=== PATIENT | male | born 1985 | race Caucasian/White ===

== ENCOUNTER 2023-06-26 03:22 | Emergency (ER) | payer SELFPAY ==
[~2023-06-26] VITALS: Ht 165.1 cm; Wt 59.5 kg
[2023-06-26 03:38] VITALS: O2SAT 100
[2023-06-26 04:04] LABS: BASOPHILS % 1.2 % (0.0-2.0); EOSINOPHILS % 2.9 % (0.0-5.0); HEMATOCRIT. 42.4 % (42.0-52.0); HEMOGLOBIN. 14.1 g/dL (14.0-18.0); LYMPHOCYTES % 38.8 % (20.0-50.0); MEAN CORPUSCULAR HEMOGLOBIN 29.8 pg (28.0-32.0); MEAN CORPUSCULAR HGB CONC 33.2 g/dL (31.0-37.0); MEAN CORPUSCULAR VOLUME 89.6 fL (80.0-94.0); MEAN PLATELET VOLUME 7.4 fl (7.4-10.4); MONOCYTES % 9.2 % (2.0-8.0); NEUTROPHILS % 47.9 % (40.0-76.0); PLATELET 341 x1000/uL (130-400); RED BLOOD CELL COUNT 4.73 mill/uL (4.7-6.1); RED CELL DISTRIBUTION WIDTH 13.5 % (11.6-14.6); WHITE BLOOD COUNT 7.8 x1000/uL (4.5-11.0)
[2023-06-26 04:11] LABS: CHLORIDE 108 mEq/L (98-107); INDEX HEMOLYSI 1 (1-3); INDEX ICTERIC 1 (1-4); INDEX LIPEMIC 1 (1-3); POTASSIUM 3.5 mEq/L (3.5-5.1); SODIUM 141 mEq/L (136-145)
[2023-06-26 04:21] LABS: ALANINE AMINOTRANSFERASE 22 IU/L (13-61); ALBUMIN 3.8 g/dL (3.4-5.0); ASPARTATE AMINOTRANSFERASE 14 IU/L (15-37); BILIRUBIN TOTAL 0.2 mg/dL (0.1-1.0); CALCIUM 8.5 mg/dL (8.5-10.1); CARBON DIOXIDE 30 mEq/L (21-32); GLUCOSE 79 mg/dL (70-105); PROTEIN TOTAL 7.5 g/dL (6.0-8.3); TROPONIN I HIGH SENSITIVITY 4 ng/L (<78); UREA NITROGEN BLOOD 14 mg/dL (7-21)
[2023-06-26] MEDS ORDERED: SODIUM CHLORIDE 0.9% 1,000 ML IV ONE (06:00)
[2023-06-26] MEDS ORDERED: ONDANSETRON HCL 4MG/2ML INJ IV STA (06:00)
[2023-06-26 06:32] LABS: EOSINOPHILS % 3.1 % (0.0-5.0); HEMATOCRIT. 40.5 % (42.0-52.0); HEMOGLOBIN. 13.6 g/dL (14.0-18.0); LYMPHOCYTES % 42.2 % (20.0-50.0); MEAN CORPUSCULAR HEMOGLOBIN 30.1 pg (28.0-32.0); MEAN CORPUSCULAR HGB CONC 33.6 g/dL (31.0-37.0); MEAN CORPUSCULAR VOLUME 89.3 fL (80.0-94.0); MEAN PLATELET VOLUME 7.4 fl (7.4-10.4); MONOCYTES % 8.2 % (2.0-8.0); NEUTROPHILS % 45.5 % (40.0-76.0); PLATELET 316 x1000/uL (130-400); RED BLOOD CELL COUNT 4.53 mill/uL (4.7-6.1); RED CELL DISTRIBUTION WIDTH 13.6 % (11.6-14.6); WHITE BLOOD COUNT 7.4 x1000/uL (4.5-11.0)
[2023-06-26 06:49] LABS: CHLORIDE 109 mEq/L (98-107); INDEX HEMOLYSI 1 (1-3); INDEX ICTERIC 1 (1-4); INDEX LIPEMIC 1 (1-3); POTASSIUM 3.8 mEq/L (3.5-5.1); SODIUM 141 mEq/L (136-145)
[2023-06-26 06:58] LABS: ALANINE AMINOTRANSFERASE 20 IU/L (13-61); ALBUMIN 3.4 g/dL (3.4-5.0); ASPARTATE AMINOTRANSFERASE 12 IU/L (15-37); BILIRUBIN TOTAL 0.2 mg/dL (0.1-1.0); CALCIUM 8.4 mg/dL (8.5-10.1); CARBON DIOXIDE 29 mEq/L (21-32); GLUCOSE 101 mg/dL (70-105); NT PRO B-TYPE NATRIURETIC PEP 13 pg/mL (5-125); PROTEIN TOTAL 6.9 g/dL (6.0-8.3); TROPONIN I HIGH SENSITIVITY 5 ng/L (<78); UREA NITROGEN BLOOD 13 mg/dL (7-21)
[2023-06-26] MEDS ORDERED: IOHEXOL-300 100 ML BOTTLE ONE (07:16)
[2023-06-26] MEDS ORDERED: IBUP-2029 MT (08:11)
[2023-06-26] MEDS ORDERED: ONDA4TAB11 PO (08:11)
[2023-06-26 09:28] LABS: CLARITY URINE CLEAR (CLEAR); COLOR URINE YELLOW (YELLOW)
[2023-06-26 09:30] LABS: GLUCOSE URINE NEGATIVE (NEGATIVE); KETONES URINE NEGATIVE (NEGATIVE); LEUKOCYTE ESTERASE URINE NEGATIVE (NEGATIVE); NITRITE URINE NEGATIVE (NEGATIVE); OCCULT BLOOD URINE NEGATIVE (NEGATIVE); PROTEIN URINE NEGATIVE (NEGATIVE); UROBILINOGEN URINE 0.2 E.U./dL (0.2-1.0)
[2023-06-26 09:51] VITALS: BP 120/69; PULSE 72; RESP 12; TEMP 94.2
== END 2023-06-26 10:20 | disposition home or self-care (01) ==
LOC: ER 05:09
DX: K52.9 Noninfective gastroenteritis and colitis, unspecified (principal)
CPT/HCPCS: 80053; 81003; 83880; 83690; 85025; 84484; 36415; 71045; 74177; 93005; 96361; 96374; 99285; Q9967; J2405; J7030; Z7610

== ENCOUNTER 2023-09-27 04:33 | Emergency (ER) | payer SELFPAY ==
[~2023-09-27] VITALS: Ht 167.6 cm; Wt 63.5 kg
[~2023-09-27 04:33] MED LIST: IBUP-2029 MT; ONDA4TAB11 PO
[2023-09-27 04:41] VITALS: BP 138/86; PULSE 98; RESP 18; TEMP 97.4; O2SAT 100
== END 2023-09-27 06:08 | disposition left against medical advice (07) ==
LOC: ER 04:33
DX: R10.9 Unspecified abdominal pain (principal); Z53.21 Procedure and treatment not carried out due to patient leaving prior to being seen by health care provider
CPT/HCPCS: 99281

== ENCOUNTER 2023-12-04 02:57 | Emergency (ER) | payer SELFPAY ==
[~2023-12-04] VITALS: Ht 167.6 cm; Wt 77.0 kg
[2023-12-04 03:10] VITALS: BP 133/80; PULSE 92; RESP 14; TEMP 98.3; O2SAT 98
[2023-12-04] MEDS: TETRACAINE 0.5% OPHTH DROPS 4ML BOTHEYE ONE (05:34)
[2023-12-04] MEDS: FLUORESCEIN SODIUM 1MG/STRIP BOTHEYE ONE (05:34)
== END 2023-12-04 09:36 | disposition left against medical advice (07) ==
LOC: ER 02:57
DX: H57.13 Ocular pain, bilateral (principal)
CPT/HCPCS: 99283

== ENCOUNTER 2024-02-13 16:44 | Emergency (ER) | payer SELFPAY ==
[~2024-02-13] VITALS: Ht 165.1 cm; Wt 63.5 kg
[2024-02-13 17:07] VITALS: BP 131/39; PULSE 78; RESP 16; TEMP 98.6; O2SAT 99
[2024-02-13] MEDS ORDERED: TOPUD MT (20:24)
[2024-02-13] MEDS ORDERED: IBUP-1523 MT (20:24)
== END 2024-02-13 20:40 | disposition home or self-care (01) ==
LOC: ER 16:44
DX: S90.32XA Contusion of left foot, initial encounter (principal); V48.2XXA Person on outside of car injured in noncollision transport accident in nontraffic accident, initial encounter; Y93.89 Activity, other specified; Y92.89 Other specified places as the place of occurrence of the external cause; Y99.8 Other external cause status
CPT/HCPCS: 73590; 73630; 99284

== ENCOUNTER 2024-07-03 22:13 | Emergency (ER) | payer SELFPAY ==
[~2024-07-03] VITALS: Ht 167.6 cm; Wt 58.9 kg
[~2024-07-03 22:13] MED LIST changes: +IBUP-1523 MT; +ONDA-239 PO; -ONDA4TAB11 PO; +TOPUD MT
[2024-07-03 22:14] VITALS: O2SAT 100
[2024-07-03 22:30] VITALS: BP 137/82; PULSE 84; RESP 18; TEMP 98.5; O2SAT 98
[2024-07-03] MEDS ORDERED: TETANUS, DIPHTHERIA, PERTUSSIS VAC/PF 0.5ML (>10YR OLD) IM ONE (22:45)
[2024-07-03] MEDS ORDERED: BACITRACIN ZINC OINT UDPKT TOP ONE (22:45)
[2024-07-03] MEDS ORDERED: LIDOCAINE HCL/PF 1% 10 MG/ML 5ML VIAL INFIL ONE (22:45)
== END 2024-07-04 01:35 | disposition left against medical advice (07) ==
LOC: ER 22:13
DX: S31.811A Laceration without foreign body of right buttock, initial encounter (principal); Z53.21 Procedure and treatment not carried out due to patient leaving prior to being seen by health care provider; X58.XXXA Exposure to other specified factors, initial encounter; Y93.89 Activity, other specified; Y92.89 Other specified places as the place of occurrence of the external cause; Y99.8 Other external cause status

== ENCOUNTER 2024-11-11 02:07 | Emergency (ER) | payer SELFPAY ==
[~2024-11-11] VITALS: Ht 167.6 cm; Wt 59.7 kg
[2024-11-11 02:37] VITALS: O2SAT 99
[2024-11-11] MEDS: KETOROLAC 15MG/ML VIAL IM ONE (02:52)
[2024-11-11] MEDS: METOCLOPRAMIDE HCL 10MG TABLET PO ONE (02:52)
[2024-11-11 02:53] VITALS: BP 129/91; PULSE 94; RESP 16; TEMP 36.7; O2SAT 99
[2024-11-11] MEDS: LIDOCAINE 5% PATCH TOP SCH (02:53)
[2024-11-11] MEDS ORDERED: LIDO700A15 TP (04:02)
[2024-11-11] MEDS ORDERED: NAPR-1176 MT (04:02)
== END 2024-11-11 04:06 | disposition left against medical advice (07) ==
LOC: ER 02:07
DX: G89.29 Other chronic pain (principal); R51.9 Headache, unspecified; M54.50 Low back pain, unspecified; Z79.899 Other long term (current) drug therapy
CPT/HCPCS: 99283; 96372; J1885; J8597

== ENCOUNTER 2025-01-26 15:25 | Emergency (ER) | payer SELFPAY ==
[~2025-01-26] VITALS: Ht 167.6 cm; Wt 60.0 kg
[~2025-01-26 15:25] MED LIST changes: +LIDO-53 TP; +NAPR-1176 MT
[2025-01-26 15:28] VITALS: O2SAT 98
[2025-01-26 15:46] VITALS: TEMP 36.5; O2SAT 98
[2025-01-26 18:25] VITALS: BP 120/80; PULSE 86; RESP 18
[2025-01-26] MEDS: KETOROLAC 30MG/ML VIAL IM ONE (18:25)
[2025-01-26] MEDS ORDERED: IBUP-2029 MT (22:10)
[2025-01-26] MEDS ORDERED: CYCL10TA21 MT (22:10)
== END 2025-01-26 22:35 | disposition home or self-care (01) ==
LOC: ER 15:25
DX: G89.29 Other chronic pain (principal); M54.50 Low back pain, unspecified; Z79.1 Long term (current) use of non-steroidal anti-inflammatories (NSAID); Z79.899 Other long term (current) drug therapy
CPT/HCPCS: 99283; 96372; J1885